=== PATIENT | female | born 1985 ===

== ENCOUNTER 2018-04-16 22:26 | Emergency (ER) | payer SELFPAY ==
[2018-04-16 22:36] VITALS: TEMP 98.3
--- NOTE | 2018-04-17 00:40 | C.PDOC ---
History Of Present Illness 33 year old female presents to the ED for evaluation of an injury to jeane anterior neck and chest wall area that occurred today. Patient states she fell and landed face forward. Patient denies LOC, headache, nausea, vomit, dizziness , weakness, numbness. - HPI Chief Complaint (Nursing): Trauma History Per: Patient History/Exam Limitations: no limitations Onset/Duration Of Symptoms: Hrs Injury Occurred (Timing): Just Before Arrival Location Of Injury: Anterior: Chest, Neck Recent travel outside of the [place]: No Additional History Per: Patient Past Medical History Reviewed: Historical Data, Nursing Documentation, Vital Signs Vital Signs: Last Vital Signs Temp 98.3 F 04/16/18 22:33 Pulse 65 04/16/18 22:33 Resp 18 04/16/18 22:33 BP 103/65 04/16/18 22:33 Pulse Ox 99 04/17/18 00:41 - Medical History PMH: No Chronic Diseases Surgical History: Appendectomy Family History: States: Unknown Family Hx - Social History Hx Alcohol Use: No Hx Substance Use: No - Immunization History Hx Tetanus Toxoid Vaccination: No Hx Influenza Vaccination: No Hx Pneumococcal Vaccination: No Review Of Systems Constitutional: Negative for: Fever, Chills Cardiovascular: Positive for: Chest Pain. Negative for: Palpitations Respiratory: Negative for: Cough, Shortness of Breath Gastrointestinal: Negative for: Nausea, Vomiting Musculoskeletal: Positive for: Neck Pain Skin: Negative for: Rash Neurological: Negative for: Weakness, Numbness Physical Exam - Physical Exam Appears: Non-toxic, No Acute Distress Skin: Normal Color, Warm, Dry Head: Atraumatic, Normacephalic Eye(s): bilateral: Normal Inspection Oral Mucosa: Moist Neck: Normal ROM, No Midline Cervical Tenderness, Supple, Other (anterior neck area tenderness) Chest: Symmetrical, Tenderness (left anterior chest wall) Cardiovascular: Rhythm Regular Respiratory: Normal Breath Sounds, No Rales, No Rhonchi, No Wheezing Gastrointestinal/Abdominal: Soft, No Tenderness, No Guarding, No Rebound Extremity: Normal ROM, No Tenderness, No Swelling Neurological/Psych: Oriented x3, Normal Speech, Normal Cognition Gait: Steady ED Course And Treatment O2 Sat by Pulse Oximetry: 99 (ON RA) Pulse Ox Interpretation: Normal Medical Decision Making Medical Decision Making: Plan: * CT head * CT C spine * CXR Disposition Counseled Patient/Family Regarding: Diagnosis - Disposition Referrals: [facility] [Outside] Disposition: HOME/ ROUTINE Disposition Time: 00:56 Condition: STABLE Prescriptions: Cyclobenzaprine [Cyclobenzaprine HCl] 10 mg PO TIDPC #14 tab Naproxen 375 mg PO Q6 #14 tablet Instructions: Cervical Muscle Strain (DC) Forms: [facility] (South Korean), Gen Discharge Inst Green[place]ic Print Language: [place] - POA Present On Arrival: None - Clinical Impression Clinical Impression: Muscle strain, Cervical myofascial strain - Scribe Statement The provider has reviewed the documentation as recorded by the Scribe Henrique Lozada All medical record entries made by the Scribe were at my direction and personally dictated by me. I have reviewed the chart and agree that the record accurately reflects my personal performance of the history, physical exam, medical decision making, and the department course for this patient. I have also personally directed, reviewed, and agree with the discharge instructions and disposition.
[2018-04-17] MEDS ORDERED: Naproxen 550 mg Tab PO STA (00:54)
[2018-04-17] MEDS ORDERED: Naproxen 550 mg Tab PO ONE ×2 (01:17→01:18)
[2018-04-17 01:27] VITALS: BP 110/70; PULSE 80; RESP 14; O2SAT 98
--- NOTE | 2018-04-17 09:08 | RAD ---
Date of service: 04/17/2018 HISTORY: chest injury/ anterior chest pain COMPARISON: No prior. TECHNIQUE: Chest PA and lateral FINDINGS: LUNGS: No active pulmonary disease. PLEURA: No significant pleural effusion identified. No pneumothorax apparent. CARDIOVASCULAR: Normal. OSSEOUS STRUCTURES: No significant abnormalities. VISUALIZED UPPER ABDOMEN: Normal. OTHER FINDINGS: None. IMPRESSION: No active disease.
--- NOTE | 2018-04-17 12:01 | CT ---
Date of service: 04/17/2018 PROCEDURE: CT Cervical Spine without contrast HISTORY: injury/ pain COMPARISON: No prior study available for comparison TECHNIQUE: Axial computed tomography images were obtained of the cervical spine without the use of intravenous contrast. Coronal and sagittal reformatted images were created and reviewed. Radiation dose: Total exam DLP = 533.38 mGy-cm. This CT exam was performed using one or more of the following dose reduction techniques: Automated exposure control, adjustment of the mA and/or kV according to patient size, and/or use of iterative reconstruction technique. FINDINGS: VERTEBRAE: No acute compression fractures no retropulsed fragments. There is made of slight straightening and minimal reversal of the normal cervical lordosis which could be due to patient positioning gantry however underlying element of muscle spasm may contribute. Vertebral bodies otherwise exhibit normal stature above. DISCS/SPINAL CANAL/NEURAL FORAMINA: Disc space heights are relatively maintained. The. Small focal central and bilateral disc bulge noted at the C5-C6 level which appears to compress the ventral surface of the thecal sac and spinal cord. Central canal is mildly narrowed as well. . There appears to be some minimal calcification posterior longitudinal ligament at the superior C6 level. PARASPINAL SOFT TISSUES: Unremarkable. OTHER FINDINGS: Note made of opacification of the right maxillary sinus. IMPRESSION: No acute fractures. The small central and bilateral disc bulge at the C5-C6 level results in mild cord compression and canal narrowing. Opacification right maxillary antrum.
== END 2018-04-17 01:27 | disposition home or self-care (01) ==
LOC: C.ER 22:26
DX: S16.1XXA Strain of muscle, fascia and tendon at neck level, initial encounter (principal); W18.30XA Fall on same level, unspecified, initial encounter